=== PATIENT | male | born 1990 | race Hispanic/Latino ===

== ENCOUNTER → 2023-10-18 | Emergency (ER) | payer SELFPAY ==
[~2023-10-18] MED LIST: LEVETIRACETAM 500 MG/5 ML VIAL IV ONE; LORazepam 2 MG/ML VIAL ONE; MAGNESIUM SULFATE 1 gm IVPB 1 GM/100 ML BAG IV ONE; NA CHLORIDE 0.9% 100 ML ONE
--- OUTSIDE RECORDS SUMMARY | 2023-10-18 05:21 | XMS REPORT | Continuity of Care Document ---
Author Name Unknown Address [address] [place] [address]. [address] [place], [place] [address] [place] [address] thconnect Address [address] [facility]. [address] [place] [address] Care Team Providers Care Compressed Air Pile Driver Operator Name Role Phone PCP, PATIENT DOES NOT HAVE A Primary Care Physic DOMINGO Lyons Attending Clinician UnavailFELIX Navarro Admitting Clinician Unavailab le Allergies, Adverse Reactions, Alerts Allergy Name Allergy Type Status Severity Reaction(s) Onset Date Inactive Date Treating Clinician Comments Source NO KNOWN ALLERGIE S Drug Class Active [facility] Encounters Start Date/Time End Date/Time Encounter Type Admission Type Attending Clinicians Care Facility Care Department Encounter ID Source 2021-01-14 20:26:00 2021-01-15 17:06:00 Outpatient DOMINGO CARBAJAL [facility] [id number] [facility]
[2023-10-18 05:58] LABS: Absolute Lymphocytes (CBC) 3.8 K/uL (0.7-4.9); Lymphocytes % 36.8 % (15.3-44.8); MCV 91.9 fL (80-100); MPV 9.8 fL (7.6-11.3); Platelets 253 thou/uL (152-406); RBC Red Blood Cell Count 5.01 M/uL (4.33-5.43)
[2023-10-18 06:01] LABS: Protime INR 1.08
[2023-10-18 06:27] LABS: Albumin 3.8 g/dL (3.4-5.0); Bilirubin Direct 0.1 mg/dL (0-0.2); Bilirubin Indirect, Calculated 0.3 mg/dL (0.2-0.8); Bilirubin Total 0.4 mg/dL (0.2-1.0); Potassium 3.6 mEq/L (3.5-5.1); Protein, Total 7.6 g/dL (6.4-8.2)
--- NOTE | 2023-10-18 06:41 | EDPHYS ---
Physician Documentation [facility] Name: Magen Zee Age: 33 yrs Sex: Male : 1990 Arrival Date: 10/18/2023 Time: 05:18 Bed 14 Private MD: ED Physician Baron Kramer HPI: 10/18 05:35 This 33 yrs old Male presents to ER via Unassigned with complaints of Arm rn Problem. 05:35 The patient presents after having a possible seizure episode. Character of seizure(s): rn Motor activity: focal activity, of the left arm. Seizure onset: this morning. Context:. Associated injury: The patient did not suffer any apparent associated injury. 05:37 Current symptoms: Currently, the patient is not experiencing any symptoms. The patient rn has experienced similar episodes in the past. Patient reports possible seizure activity, reports left arm is twitching and spasm and is drawn up to left shoulder involuntarily. Patient states this is happened twice before and both times progressed to generalized seizure. Was admitted once with workup and not discharged with seizure medication but was the first time it happened. Patient reports things started because of Xanax withdrawal. Patient does report cocaine use last night. Left arm twitching and spasm began this morning and is concerned is having another seizure.. Historical: - Allergies: 05:42 No Known Allergies; lg3 - Home Meds: 05:42 None [Active]; lg3 - PMHx: 05:42 None; lg3 - PSHx: 05:42 None; lg3 - Immunization history:: Adult Immunizations up to date, Client reports having NOT received the Covid vaccine. Flu vaccine is not up to date. - Social history:: Smoking status: Patient reports the use of cigarette tobacco products, smokes one-half pack cigarettes per day, Patient uses alcohol, weekly. street drugs, cocaine, marijuana. - Family history:: not pertinent. - Hospitalizations: : No recent hospitalization is reported. ROS: 05:37 Constitutional: Negative for fever, chills, and weight loss, ENT: Negative for injury, rn pain, and discharge, Neck: Negative for injury, pain, and swelling, Cardiovascular: Positive for chest pain Respiratory: Negative for shortness of breath, cough, wheezing, and pleuritic chest pain, Abdomen/GI: Negative for abdominal pain, nausea, vomiting, diarrhea, and constipation, MS/Extremity: Negative for injury and deformity, Skin: Negative for injury, rash, and discoloration, Neuro: Positive for headache and positive for possible seizure Exam: 05:37 Constitutional: This is a well developed, well nourished patient who is awake, alert, rn appears anxious but ambulatory to room without difficulty or assistance Head/Face: Normocephalic, atraumatic. Cardiovascular: Regular rate and rhythm. No pulse deficits. Respiratory: Speaking full sentences, unlabored. No increased work of breathing, no retractions or nasal flaring. Abdomen/GI: Soft, non-tender Skin: Warm, dry with normal turgor. Normal color with no rashes, no lesions, and no evidence of cellulitis. Neuro: Awake and alert, GCS 15, oriented to person, place, time, and situation. Cranial nerves II-XII grossly intact. Motor strength 5/5 in all extremities. Sensory grossly intact. Cerebellar exam normal. Normal gait. Intermittent involuntary drying of left arm towards left shoulder with involuntary flexion. In middle of contraction action patient is able to stop and reach for hat. Vital Signs: 05:37 BP 138 / 89; Pulse 107; Resp 19 S; Temp 98.4(O); Pulse Ox 100% on R/A; Weight 97.52 kg lg3 (R); Height 5 ft. 9 in. (R); 06:13 BP 140 / 86; Pulse 90; Resp 18 S; Pulse Ox 100% on R/A; kc6 07:21 BP 140 / 82; Pulse 92; Resp 16; Pulse Ox 99% on R/A; db 05:37 Body Mass Index 31.75 (97.52 kg, 175.26 cm) lg3 MDM: 05:21 Patient medically screened. rn 06:38 Differential diagnosis: seizure, Anxiety, drug use, withdrawal. Data reviewed: vital rn signs, nurses notes, lab test result(s), EKG, radiologic studies, CT scan, plain films, and as a result, I will discharge patient. Counseling: I had a detailed discussion with the patient and/or guardian regarding the historical points, exam findings, and any diagnostic results supporting the discharge/admit diagnosis, lab results, radiology results, the need for outpatient follow up, to return to the emergency department if symptoms worsen or persist or if there are any questions or concerns that arise at home. Response to treatment: the patient's symptoms have markedly improved after treatment, the patient's symptoms have resolved after treatment, the patient's condition has returned to base line, the patient is now symptom free. ED course: CT head and C-spine without acute findings per radiology read. Chest x-ray images negative for acute pathology per radiology read. Since loading of Keppra and magnesium symptoms have resolved. Spoke with patient told him likely is prone to seizures as father had seizures and he has had multiple seizures in the past. Told him he needs to stop using drugs as this will lower seizure threshold. Patient understands. Patient is happy and no longer having spasm or tremor of the left arm. Stable vital signs. I have personally reviewed all of the results, including but not limited to blood tests and imaging deemed necessary to safely discharge this patient at this time. All results given to and printed out for patient. I personally went over all the results with the patient and answered all questions. Patient will follow-up with PCP and or specialist as discussed. Return precautions given and understood.. 10/18 05:34 Order name: Basic Metabolic Panel; Complete Time: 06:30 10/18 05:34 Order name: CBC with Diff; Complete Time: 05:59 10/18 05:34 Order name: LFT's; Complete Time: 06:30 10/18 05:34 Order name: PT-INR; Complete Time: 06:01 10/18 05:34 Order name: Troponin HS; Complete Time: 06:30 10/18 05:37 Order name: Urine Drug Screen; Complete Time: 06:50 10/18 05:34 Order name: XRAY Chest (1 view) 10/18 05:34 Order name: CT Head C Spine 10/18 05:34 Order name: EKG; Complete Time: 05:34 10/18 05:34 Order name: Cardiac monitoring; Complete Time: 05:49 10/18 05:34 Order name: EKG - Nurse/Tech; Complete Time: 05:49 10/18 05:34 Order name: IV Saline Lock; Complete Time: 05:45 10/18 05:34 Order name: Labs collected and sent; Complete Time: 05:45 10/18 05:34 Order name: O2 Per Protocol; Complete Time: 05:37 10/18 05:34 Order name: O2 Sat Monitoring; Complete Time: 05:37 rn Administered Medications: 06:11 Drug: Keppra IV 1000 mg IV at calculated rate once Route: IV; Rate: calculated rate; kc6 Site: right forearm; 06:37 Follow up: Response: No adverse reaction; IV Status: Completed infusion; IV Intake: kc6 100ml 06:11 Drug: Ativan IVP 1 mg IVP once Route: IVP; Site: right forearm; kc6 06:38 Follow up: Response: No adverse reaction; Anxiety decreased; RASS: Alert and Calm (0) 6 06:17 Drug: Magnesium Sulfate IVPB 1 grams IVPB once over 1 hrs Route: IVPB; Infused Over: 1 kc6 hrs; Site: right forearm; 07:22 Follow up: Response: No adverse reaction; IV Status: Completed infusion db Disposition Summary: 10/18/23 06:40 Discharge Ordered Notes: Location: Home rn Problem: new rn Symptoms: have improved rn Condition: Stable rn Diagnosis - Other seizures rn - Anxiety disorder, unspecified rn Followup: rn - With: Private Physician - When: As needed - Reason: Recheck today's complaints, Re-evaluation by your physician Discharge Instructions: - Discharge Summary Sheet rn - Seizure, Adult rn - Managing Anxiety, Adult rn Forms: - Medication Reconciliation Form rn - Thank You Letter rn - Antibiotic administration intern - Prescription Opioid Use rn - Patient Portal Instructions rn - Leadership Thank You Letter rn Prescriptions: - Keppra 500 mg Oral tablet - take 1 tablet ORAL route every 12 hours; 60 tablet; Refills: 0, Product rn Selection Permitted Signatures: Dispatcher [employer] Baron Currie MD MD rn Able, Lacie, RN RN lg3 Viktoriya López RN RN kc6 Mindy Reyna RN db
--- NOTE | 2023-10-18 06:41 | ER ---
Nurse's Notes [facility] Name: Magen Zee Age: 33 yrs Sex: Male : 1990 Arrival Date: 10/18/2023 Time: 05:18 Bed 14 Private MD: Diagnosis: Other seizures;Anxiety disorder, unspecified Presentation: 10/18 05:37 Chief complaint: Patient states: new onset seizure 1 year ago. never followed up. 2 lg3 similar episodes since first one. pt reports waking up to left arm retractions, numbness and tingling. Coronavirus screen: Client denies travel out of the [place] in the last 14 days. At this time, the client does not indicate any symptoms associated with coronavirus-19. Ebola Screen: No symptoms or risks identified at this time. Initial Sepsis Screen: Does the patient meet any 2 criteria? No. Patient's initial sepsis screen is negative. Does the patient have a suspected source of infection? No. Patient's initial sepsis screen is negative. Risk Assessment: Do you want to hurt yourself or someone else? Patient reports no desire to harm self or others. Onset of symptoms was October 18, 2023. 05:37 Method Of Arrival: Ambulatory lg3 05:37 Acuity: GITA 3 lg3 Triage Assessment: 05:42 General: Appears in no apparent distress. comfortable, Behavior is cooperative, lg3 anxious. Pain: Complains of pain in anterior aspect of left upper chest Pain does not radiate. EENT: No deficits noted. No signs and/or symptoms were reported regarding the EENT system. Neuro: [place] Agitation-Sedation Scale (RASS): +1 Restless Level of Consciousness is awake, alert, obeys commands, Oriented to person, place, time, situation, Reports numbness in left arm Seizure activity noted at this time. Cardiovascular: No deficits noted. Capillary refill < 3 seconds Clubbing of nail beds is absent JVD is absent Patient's skin is warm and dry. Respiratory: No deficits noted. Airway is patent Respiratory effort is even, unlabored, Respiratory pattern is regular, symmetrical. GI: No deficits noted. No signs and/or symptoms were reported involving the gastrointestinal system. Abdomen is round non-distended, obese. : No deficits noted. No signs and/or symptoms were reported regarding the genitourinary system. Derm: No deficits noted. Skin is intact, is healthy with good turgor, Skin is dry, Skin is normal, Skin temperature is warm. Musculoskeletal: Circulation, motion, and sensation intact. Range of motion: intact in all extremities, Reports weakness in left arm numbness in left arm. Historical: - Allergies: 05:42 No Known Allergies; lg3 - Home Meds: 05:42 None [Active]; lg3 - PMHx: 05:42 None; lg3 - PSHx: 05:42 None; lg3 - Immunization history:: Adult Immunizations up to date, Client reports having NOT received the Covid vaccine. Flu vaccine is not up to date. - Social history:: Smoking status: Patient reports the use of cigarette tobacco products, smokes one-half pack cigarettes per day, Patient uses alcohol, weekly. street drugs, cocaine, marijuana. - Family history:: not pertinent. - Hospitalizations: : No recent hospitalization is reported. Screenin:50 [facility] ED Fall Risk Assessment (Adult) History of falling in the last 3 months, kc6 including since admission No falls in past 3 months (0 pts) Confusion or Disorientation No (0 pts) Intoxicated or Sedated No (0 pts) Impaired Gait No (0 pts) Mobility Assist Device Used No (0 pt) Altered Elimination No (0 pt) Score/Fall Risk Level 0 - 2 = Low Risk. Abuse screen: Denies threats or abuse. Denies injuries from another. Nutritional screening: No deficits noted. Tuberculosis screening: No symptoms or risk factors identified. Assessment: 05:50 General: Appears in no apparent distress. comfortable, well groomed, well developed, kc6 Behavior is cooperative, appropriate for age, anxious. Pain: Complains of pain in left arm and chest and anterior aspect of left upper chest. Neuro: Level of Consciousness is awake, alert, obeys commands, Oriented to person, place, time, situation, Appropriate for age Reports numbness in left arm paresthesias in left arm. Cardiovascular: Reports chest pain, Capillary refill < 3 seconds. Respiratory: Airway is patent Trachea midline Respiratory effort is even, unlabored, Respiratory pattern is regular, symmetrical. GI: No signs and/or symptoms were reported involving the gastrointestinal system. : No signs and/or symptoms were reported regarding the genitourinary system. EENT: No signs and/or symptoms were reported regarding the EENT system. Derm: No signs and/or symptoms reported regarding the dermatologic system. Skin is intact, is healthy with good turgor, Skin is pink, warm \T\ dry. Musculoskeletal: Circulation, motion, and sensation intact. Capillary refill < 3 seconds, Range of motion: intact in all extremities. 06:45 Reassessment: Patient appears in no apparent distress at this time. No changes from kc6 previously documented assessment. Patient and/or family updated on plan of care and expected duration. Pain level reassessed. Patient is alert, oriented x 3, equal unlabored respirations, skin warm/dry/pink. d/c pending magnesium completion Patient denies pain at this time. Patient states feeling better. Patient states symptoms have improved. 07:21 Reassessment: Patient appears in no apparent distress at this time. Patient and/or db family updated on plan of care and expected duration. Pain level reassessed. Patient is alert, oriented x 3, equal unlabored respirations, skin warm/dry/pink. Patient states feeling better. Vital Signs: 05:37 BP 138 / 89; Pulse 107; Resp 19 S; Temp 98.4(O); Pulse Ox 100% on R/A; Weight 97.52 kg lg3 (R); Height 5 ft. 9 in. (R); 06:13 BP 140 / 86; Pulse 90; Resp 18 S; Pulse Ox 100% on R/A; kc6 07:21 BP 140 / 82; Pulse 92; Resp 16; Pulse Ox 99% on R/A; db 05:37 Body Mass Index 31.75 (97.52 kg, 175.26 cm) lg3 ED Course: 05:21 Patient arrived in ED. jj6 05:21 Baron Kramer MD is Attending Physician. rn 05:22 Viktoriya López RN is Primary Nurse. kc6 05:42 Triage completed. lg3 05:42 Arm band placed on right wrist. lg3 05:45 Inserted saline lock: 20 gauge in right forearm, using aseptic technique. Blood rv1 collected. 05:45 Basic Metabolic Panel Sent. rv1 05:45 CBC with Diff Sent. rv1 05:45 LFT's Sent. rv1 05:45 PT-INR Sent. rv1 05:45 Troponin HS Sent. rv1 05:50 Patient maintains SpO2 saturation greater than 95% on room air. kc6 05:50 Patient has correct armband on for positive identification. Bed in low position. Call kc6 light in reach. Side rails up X 1. Adult w/ patient. Client placed on continuous cardiac and pulse oximetry monitoring. NIBP monitoring applied. 06:02 CT Head C Spine In Process Unspecified. EDMS 06:14 XRAY Chest (1 view) In Process Unspecified. EDMS 07:21 No provider procedures requiring assistance completed. IV discontinued, intact, db bleeding controlled, No redness/swelling at site. 07:21 Provided Education on: DISCHARGE. db Administered Medications: 06:11 Drug: Keppra IV 1000 mg IV at calculated rate once Route: IV; Rate: calculated rate; kc6 Site: right forearm; 06:37 Follow up: Response: No adverse reaction; IV Status: Completed infusion; IV Intake: kc6 100ml 06:11 Drug: Ativan IVP 1 mg IVP once Route: IVP; Site: right forearm; kc6 06:38 Follow up: Response: No adverse reaction; Anxiety decreased; RASS: Alert and Calm (0) kc6 06:17 Drug: Magnesium Sulfate IVPB 1 grams IVPB once over 1 hrs Route: IVPB; Infused Over: 1 kc6 hrs; Site: right forearm; 07:22 Follow up: Response: No adverse reaction; IV Status: Completed infusion db Medication: 07:21 VIS not applicable for this client. db Intake: 06:37 IV: 100ml; Total: 100ml. kc6 Outcome: 06:40 Discharge ordered by . rn 07:21 Discharged to home ambulatory, with family, db 07:21 Condition: stable 07:21 Discharge instructions given to patient, Instructed on discharge instructions, follow up and referral plans. Prescriptions given X 1, 07:23 Patient left the ED. db Signatures: Dispatcher [employer] EDMS Baron Kramer MD MD rn Able, Lacie, RN RN [email or web address] Eli [email or web address] Viktoriya López RN RN [email or web address] Mindy Reyna RN RN Suad Humphries rv1
[2023-10-18 06:49] LABS: Barbiturates NEGATIVE (NEGATIVE); Benzodiazepines NEGATIVE (NEGATIVE); Cocaine POSITIVE (NEGATIVE); METHAMPHETAM NEGATIVE (NEGATIVE); Methadone NEGATIVE (NEGATIVE); Opiates NEGATIVE (NEGATIVE); Phencyclidine NEGATIVE (NEGATIVE); THC Cannibis POSITIVE (NEGATIVE)
[2023-10-18 07:34] VITALS: BP 140/82; TEMP 98.4; O2SAT 99
--- NOTE | 2023-10-18 10:44 | RAD REPORT ---
EXAM DESCRIPTION: CT - Head C Spine Mpr Wo Con - 10/18/2023 6:29 am CLINICAL HISTORY: The patient is 33 years old and is Male; possible seizure, left arm twitching TECHNIQUE: Axial computed tomography images of the head/brain and cervical spine without intravenous contrast. Sagittal and coronal reformatted images were created and reviewed. This CT exam was pe rformed using one or more of the following dose reduction techniques: automated exposure control, a djustment of the mA and/or kV according to patient size, and/or use of iterative reconstruction techn ique. COMPARISON: No relevant prior studies available. FINDINGS: Brain: Unremarkable. No hemorrhage. No significant white matter disease. No edema. Ventricles: Unremarkable. No ventriculomegaly. Skull: No acute fracture. Sinuses: Unremarkable as visualized. No acute sinusitis. Mastoid air cells: Unremarkable as visualized. No mastoid effusion. Vertebrae: Unremarkable. No acute fracture. Normal alignment. Discs/spinal canal/neural foramina: No acute findings. No spinal canal stenosis. Soft tissues: Unremarkable. IMPRESSION: No acute intracranial abnormality. No acute findings in the cervical spine. Electronically signed by: Abimael Rangel MD 10/18/2023 06:18 AM EYEGLASS MAKER Due to temporary technical issues with the PACS/Fluency reporting system, reports are being signed by the in house radiologist without review as a courtesy to ensure prompt reporting. The interpreting r adiologist is fully responsible for the content of the report.
--- NOTE | 2023-10-18 11:01 | RAD REPORT ---
EXAM DESCRIPTION: RAD - Chest Single View - 10/18/2023 6:12 am CLINICAL HISTORY: The patient is 33 years old and is Male; CHEST PAIN TECHNIQUE: Frontal view of the chest. COMPARISON: No relevant prior studies available. FINDINGS: Lungs: Unremarkable. No consolidation. Pleural space: Unremarkable. No pneumothorax. Heart: Unremarkable. Mediastinum: Unremarkable. Normal mediastinal contour. Bones/joints: No acute findings. IMPRESSION: No acute findings in the chest. Electronically signed by: Abimael Rangel MD 10/18/2023 06:19 AM SCREEN MAKING SUPERVISOR Due to temporary technical issues with the PACS/Fluency reporting system, reports are being signed by the in house radiologist without review as a courtesy to ensure prompt reporting. The interpreting r adiologist is fully responsible for the content of the report.
--- NOTE | 2023-10-18 13:33 | EKG ---
Test Date: 2023-10-18 Test Time: 05:47:35 Nanny Babysitter: ÁNGEL MEASUREMENT RESULTS: Intervals: Rate: 91 VA: 180 QRSD: 90 QT: 362 QTc: 445 [place]: P: 41 VA: 180 QRS: 104 T: 22 INTERPRETIVE STATEMENTS: Normal sinus rhythm Rightward axis Borderline ECG Compared to ECG 03/24/2014 00:17:48 Right-axis deviation now present Electronically Signed On 10-18-23 13:32:02 SHIFT COMMANDER by Inocente Singer
== END ==
LOC: ER 05:18
DX: R56.9 Unspecified convulsions (principal); F41.9 Anxiety disorder, unspecified
CPT/HCPCS: 36415; 70450; 71045; 72125; 80048; 80076; 80307; 84484; 85025; 85610; 93005; J1953; J3475

== ENCOUNTER → 2023-10-23 | Emergency (ER) | payer SELFPAY ==
[~2023-10-23] MED LIST changes: +DIPHENHYDRAMINE 50 MG/ML VIAL ONE; -LORazepam 2 MG/ML VIAL ONE; -MAGNESIUM SULFATE 1 gm IVPB 1 GM/100 ML BAG IV ONE; -NA CHLORIDE 0.9% 100 ML ONE
--- OUTSIDE RECORDS SUMMARY | 2023-10-23 00:24 | XMS REPORT | Continuity of Care Document ---
Author Name Unknown Address [address] [place] [address]. [address] [place], [place] [address] [place] [address] thconnect Address [address] [facility]. [address] [place] [address] Care Team Providers Care Product Director Name Role Phone PCP, PATIENT DOES NOT HAVE A Primary Care Physic DOMINGO Lyons Attending Clinician UnavailFELIX Navarro Admitting Clinician Unavailab le Allergies, Adverse Reactions, Alerts Allergy Name Allergy Type Status Severity Reaction(s) Onset Date Inactive Date Treating Clinician Comments Source NO KNOWN ALLERGIE S Drug Class Active [facility] Encounters Start Date/Time End Date/Time Encounter Type Admission Type Attending Clinicians Care Facility Care Department Encounter ID Source 2021-01-14 20:26:00 2021-01-15 17:06:00 [place]INGO [place]BA[place] [id number] [facility]
[2023-10-23 01:02] LABS: Absolute Lymphocytes (CBC) 5.9 K/uL (0.7-4.9); Hematocrit 47.2 % (39.6-49.0); Lymphocytes % 50.4 % (15.3-44.8); MCV 92.4 fL (80-100); MPV 9.9 fL (7.6-11.3); Platelets 259 thou/uL (152-406); RBC Red Blood Cell Count 5.11 M/uL (4.33-5.43)
[2023-10-23 01:30] LABS: BUN Blood Urea Nitrogen 10 mg/dL (7-18); Bicarbonate 31 mEq/L (21-32); Glomerular Filtration Rate 116 ml/min (=/>90); Glucose Level 103 mg/dL (74-106); Potassium 4.2 mEq/L (3.5-5.1); Sodium Level 138 mEq/L (136-145)
[2023-10-23 01:36] LABS: Troponin High Sensitivity < 3.0 pg/mL (<58.9)
--- NOTE | 2023-10-23 01:45 | ER ---
Nurse's Notes [facility] Name: Magen Zee Age: 33 yrs Sex: Male : 1990 Arrival Date: 10/23/2023 Time: 00:19 Bed 20 Private MD: Diagnosis: Other muscle spasm Presentation: 10/23 00:28 Chief complaint: Patient states: on Wednesday was seen for seizure, prescribed with rv Keppra, on the second day of taking the Keppra, started to have anxiety episodes, described as stiffness of the muscles with tachypnea. Coronavirus screen: At this time, the client does not indicate any symptoms associated with coronavirus-19. Ebola Screen: No symptoms or risks identified at this time. Initial Sepsis Screen: Does the patient meet any 2 criteria? No. Patient's initial sepsis screen is negative. Does the patient have a suspected source of infection? No. Patient's initial sepsis screen is negative. Risk Assessment: Do you want to hurt yourself or someone else? Patient reports no desire to harm self or others. Onset of symptoms was October 23, 2023. 00:28 Method Of Arrival: Ambulatory rv 00:28 Acuity: GITA 3 rv Triage Assessment: 00:34 General: Appears in no apparent distress. Behavior is cooperative, anxious. Pain: rv Denies pain. Neuro: Level of Consciousness is awake, alert, obeys commands, Oriented to person, place, time, situation. Cardiovascular: Capillary refill < 3 seconds Patient's skin is warm and dry. Respiratory: Airway is patent Respiratory effort is even, unlabored. GI: No signs and/or symptoms were reported involving the gastrointestinal system. : No signs and/or symptoms were reported regarding the genitourinary system. Derm: Skin is intact. Historical: - Allergies: 00:33 No Known Allergies; rv - Home Meds: 00:33 Keppra Oral [Active]; rv - PMHx: 00:33 Anxiety; Seizure; rv - PSHx: 00:33 None; rv - Immunization history:: Adult Immunizations up to date. - Social history:: Smoking status: Patient/guardian denies using tobacco. Screenin:35 [facility] ED Fall Risk Assessment (Adult) History of falling in the last 3 months, rv including since admission No falls in past 3 months (0 pts) Score/Fall Risk Level 0 - 2 = Low Risk Oriented to surroundings, Maintained a safe environment, Educated pt \T\ family on fall prevention, incl call for assistance when getting out of bed, Assessed \T\ reinforced patient's understanding of fall precautions. Abuse screen: Denies threats or abuse. Denies injuries from another. Nutritional screening: No deficits noted. Tuberculosis screening: No symptoms or risk factors identified. Assessment: 01:38 Reassessment: Patient and/or family updated on plan of care and expected duration. Pain rv level reassessed. Patient is alert, oriented x 3, equal unlabored respirations, skin warm/dry/pink. Patient states feeling better. Patient states symptoms have improved. Vital Signs: 00:28 BP 136 / 88; Pulse 68; Resp 16; Temp 98.6; Pulse Ox 100% ; Weight 97.52 kg; Height 5 rv ft. 9 in. ; 01:36 BP 125 / 82; Pulse 62; Resp 16; Temp 98; Pulse Ox 99% ; rv 00:28 Body Mass Index 31.75 (97.52 kg, 175.26 cm) rv ED Course: 00:25 Patient arrived in ED. gm2 00:29 Marty Yan MD is Attending Physician. ec2 00:33 Triage completed. rv 00:34 Arm band placed on right wrist. rv 00:35 Patient has correct armband on for positive identification. Client placed on continuous rv cardiac and pulse oximetry monitoring. NIBP monitoring applied. 00:58 Vasu Rowland, SULEIMAN is Primary Nurse. rv 00:59 Inserted saline lock: 20 gauge in right antecubital area, using aseptic technique. rv Blood collected. 01:48 No provider procedures requiring assistance completed. IV discontinued, intact, rv bleeding controlled, No redness/swelling at site. Pressure dressing applied. Administered Medications: 00:58 Drug: Keppra IV 1000 mg IV at bolus once Route: IV; Rate: bolus; Site: right rv antecubital; 01:48 Follow up: Response: No adverse reaction; Marked relief of symptoms; IV Status: rv Completed infusion 00:59 Drug: diphenhydrAMINE IVP 25 mg IVP once Route: IVP; Site: right antecubital; rv 01:48 Follow up: Response: No adverse reaction; Marked relief of symptoms rv Medication: 00:35 VIS not applicable for this client. rv Outcome: 01:45 Discharge ordered by . ec2 01:48 Discharged to home ambulatory, with family, rv 01:48 Condition: good 01:48 Discharge instructions given to patient, family, Instructed on discharge instructions, follow up and referral plans. Demonstrated understanding of instructions, follow-up care, 01:49 Patient left the ED. rv Signatures: Vasu Rowland RN RN rv Marty Yan MD MD ec2 Moni Hadley [facility]
--- NOTE | 2023-10-23 01:45 | EDPHYS ---
Physician Documentation [facility] Name: Magen Zee Age: 33 yrs Sex: Male : 1990 Arrival Date: 10/23/2023 Time: 00:19 Bed 20 Private MD: ED Physician Marty Yan HPI: 10/23 00:47 This 33 yrs old Male presents to ER via Ambulatory with complaints of Anxiety, ec2 Shoulder Pain. 00:47 Patient arrives today due to concern for muscle spasms. Patient reports history of ec2 seizure, states that he gets cramping prior to seizures and has noticed increasing cramping. Patient reports that he was recently started on Keppra which has helped with symptoms. Patient reports no issues with p.o. intake, no nausea or vomiting.. Historical: - Allergies: 00:33 No Known Allergies; rv - Home Meds: 00:33 Keppra Oral [Active]; rv - PMHx: 00:33 Anxiety; Seizure; rv - PSHx: 00:33 None; rv - Immunization history:: Adult Immunizations up to date. - Social history:: Smoking status: Patient/guardian denies using tobacco. ROS: 00:49 Constitutional: as per hpi ec2 Exam: 00:49 Constitutional: GEN: NAD Head: atraumatic Eyes: EOMI Ears: External ears are ec2 normal. CV: regular rate LUNGS: no respiratory distress ABD: non-distended SKIN: no evidence of rashes MSK: no evidence of trauma NEURO: moves all extremities equally, cranial nerves II 12 intact, strength intact in all 4 extremities, no pronator drift Vital Signs: 00:28 BP 136 / 88; Pulse 68; Resp 16; Temp 98.6; Pulse Ox 100% ; Weight 97.52 kg; Height 5 rv ft. 9 in. ; 01:36 BP 125 / 82; Pulse 62; Resp 16; Temp 98; Pulse Ox 99% ; rv 00:28 Body Mass Index 31.75 (97.52 kg, 175.26 cm) rv MDM: 00:42 Patient medically screened. ec2 00:49 Data reviewed: vital signs. ED course: Patient arrives today due to concern for anxiety ec2 and spasms. Examination remarkable for neuro intact individual is otherwise in no acute distress. Will obtain lab work to evaluate for electrolyte disturbances, low suspicion for arrhythmia, suspicion for anemia, low suspicion for seizure given patient's well appearance. Will also give the patient Keppra as he reports that the Keppra helps his symptoms.. 01:04 ED course: EKG independently reviewed and interpreted by me, shows normal sinus rhythm, ec2 rate of 60, no acute ST segment elevations, nonconcerning intervals. . 01:40 ED course: CBC reassuring, metabolic profile with appropriate electrolytes and calcium, ec2 troponin within normal ranges. . 10/23 00:45 Order name: Basic Metabolic Panel; Complete Time: 01:39 ec2 10/23 00:45 Order name: CBC with Diff; Complete Time: :39 ec2 10/23 00:45 Order name: Troponin HS; Complete Time: :39 ec2 10/23 00:45 Order name: EKG; Complete Time: 00:45 ec2 10/23 00:45 Order name: Cardiac monitoring; Complete Time: 00:52 ec2 10/23 00:45 Order name: EKG - Nurse/Tech; Complete Time: 00:52 ec2 10/23 00:45 Order name: IV Saline Lock; Complete Time: 00:52 ec2 10/23 00:45 Order name: Labs collected and sent; Complete Time: 00:52 ec2 10/23 00:45 Order name: O2 Per Protocol; Complete Time: 00:52 ec2 10/23 00:45 Order name: O2 Sat Monitoring; Complete Time: 00:52 ec2 Administered Medications: 00:58 Drug: Keppra IV 1000 mg IV at bolus once Route: IV; Rate: bolus; Site: right rv antecubital; 01:48 Follow up: Response: No adverse reaction; Marked relief of symptoms; IV Status: rv Completed infusion 00:59 Drug: diphenhydrAMINE IVP 25 mg IVP once Route: IVP; Site: right antecubital; rv 01:48 Follow up: Response: No adverse reaction; Marked relief of symptoms rv Disposition Summary: 10/23/23 01:45 Discharge Ordered Notes: Location: Home ec2 Condition: Stable ec2 Diagnosis - Other muscle spasm ec2 Followup: ec2 - With: Private Physician - When: - Reason: Recheck today's complaints Discharge Instructions: - Discharge Summary Sheet ec2 - Muscle Cramps and Spasms ec2 Forms: - Medication Reconciliation Form ec2 - Thank You Letter ec2 - Antibiotic Education ec2 - Prescription Opioid Use ec2 - Patient Portal Instructions ec2 - Leadership Thank You Letter ec2 Signatures: Dispatcher [employer] Vasu Acuna RN RN rv Corral, Edwin, MD MD ec2
[2023-10-23 02:07] VITALS: BP 125/82; TEMP 98; O2SAT 99
--- NOTE | 2023-10-25 11:01 | EKG ---
Test Date: 2023-10-23 Test Time: 01:00:16 Financial Sales Manager: FRANCESCA MEASUREMENT RESULTS: Intervals: Rate: 60 SD: 180 QRSD: 96 QT: 408 QTc: 408 [place]: P: 20 SD: 180 QRS: 62 T: 50 INTERPRETIVE STATEMENTS: Normal sinus rhythm Normal ECG Compared to ECG 10/18/2023 05:47:35 Right-axis deviation no longer present Electronically Signed On 10-25-23 10:57:37 SHELTER DIRECTOR by Dorian Melton
== END ==
LOC: ER 00:19
DX: M62.838 Other muscle spasm (principal)
CPT/HCPCS: 36415; 80048; 84484; 85025; 93005; 96365; 96375; 99284; J1200; J1953

== ENCOUNTER 2023-12-25 11:55 | Emergency (ER) | payer SELFPAY ==
--- OUTSIDE RECORDS SUMMARY | 2023-12-25 11:58 | XMS REPORT | Continuity of Care Document ---
Author Name Unknown Address [address] [place] [address] thconnect Address [address] [facility] [address] [place] [address] Care Team Providers Care Director Records Management Name Role Phone PCP, PATIENT DOES NOT HAVE A Primary Care Physic DOMINGO Lyons Attending Clinician FELIX Sterling Admitting Clinician Unavailab le Allergies, Adverse Reactions, Alerts Allergy Name Allergy Type Status Severity Reaction(s) Onset Date Inactive Date Treating Clinician Comments Source NO KNOWN ALLERGIE S Drug Class Active [facility] Encounters Start Date/Time End Date/Time Encounter Type Admission Type Attending Clinicians Care Facility Care Department Encounter ID Source 2021-01-14 20:26:00 2021-01-15 17:06:00 Outpatient DOMINGO CARBAJAL [facility] [id number] [facility]
[2023-12-25] MEDS ORDERED: KETOROLAC 30 MG/ML INJ ONE (12:25)
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
[2023-12-25 13:11] VITALS: BP 135/76; TEMP 98.2; O2SAT 99
--- NOTE | 2023-12-25 13:26 | RAD REPORT ---
EXAM DESCRIPTION: RAD - Hand Right 3 View - 12/25/2023 12:36 pm CLINICAL HISTORY: PAIN COMPARISON: No comparisons TECHNIQUE: Right hand, 3 views. FINDINGS: No fracture is identified. Anterior dislocation of the second digit middle phalanx relative to the head of the proximal phalanx. Soft tissue swelling about the second digit. No periosteal reaction noted. No foreign body or other soft tissue abnormality. IMPRESSION: Dislocation at the level of the second digit proximal interphalangeal joint. No acute fr actures.
== END 2023-12-25 12:50 | disposition home or self-care (01) ==
LOC: ER 11:55
PROC: 0RSWXZZ Reposition Right Finger Phalangeal Joint, External Approach (ICD-10-PCS; principal; 2023-12-25)
DX: S63.280A Dislocation of proximal interphalangeal joint of right index finger, initial encounter (principal)
CPT/HCPCS: 96372; 99284